=== PATIENT | female | born 1955 | race Caucasian/White ===

== ENCOUNTER → 2016-07-16 | Outpatient (CLI) | payer SELFPAY ==
[2016-07-16 15:20] LABS: Anion Gap 11 mmol/L; Blood Urea Nitrogen 12 mg/dL (7-17); Carbon Dioxide 28 mmol/L (22-30); Chloride 104 mmol/L (98-107); Creatine Kinase 77 U/L (30-135); Non-African American GFR(MDRD) >60 (>60 ml/min/1.73 sqM); Potassium 4.4 mmol/L (3.5-5.1); Sodium 143 mmol/L (137-145)
== END | disposition home or self-care (01) ==
LOC: MMGSC 09:55
PROVIDERS: ATTEND Internal Medicine Cardiovascular Disease
DX: E78.00 Pure hypercholesterolemia, unspecified (principal)
CPT/HCPCS: 36415; 80051; 82550; 82565; 84520

== ENCOUNTER → 2017-01-27 | Outpatient (CLI) | payer BC ==
[2017-01-27 21:05] LABS: ALT 33 U/L (9-52); AST 21 U/L (14-36); Cholesterol 161 mg/dL (<200); Creatine Kinase 95 U/L (30-135); HDL Cholesterol 66 mg/dL (40-60); Triglycerides 65 mg/dL (<150)
== END | disposition home or self-care (01) ==
LOC: MMGSC 10:23
PROVIDERS: ATTEND Internal Medicine Cardiovascular Disease
DX: I25.10 Atherosclerotic heart disease of native coronary artery without angina pectoris (principal); E78.5 Hyperlipidemia, unspecified
CPT/HCPCS: 36415; 80061; 82550; 84450; 84460

== ENCOUNTER → 2018-04-19 | Outpatient (CLI) | payer BC ==
--- NOTE | 2018-04-20 13:03 | MM ---
Reason for exam: screening (asymptomatic). Last mammogram was performed 3 years and 1 month ago. History: Patient is postmenopausal. Benign excisional biopsy of the left breast, 2016. Physical Findings: A clinical breast exam by your physician is recommended on an annual basis and results should be correlated with mammographic findings. MG 3D Screening Mammo W/Cad Bilateral CC and MLO view(s) were taken. Prior study comparison: April 01, 2015, mammogram, performed at [facility]. September 22, 2013, mammogram, performed at [facility]. The breast tissue is heterogeneously dense. This may lower the sensitivity of mammography. Stable benign calcifications. Left skin marker upper outer quadrant. ASSESSMENT: Negative, BI-RAD 1 RECOMMENDATION: Routine screening mammogram of both breasts in 1 year.
== END | disposition home or self-care (01) ==
LOC: RADMAMWWP 08:30
PROVIDERS: ATTEND Family Medicine
DX: Z12.31 Encounter for screening mammogram for malignant neoplasm of breast (principal)
CPT/HCPCS: 77063; 77067

== ENCOUNTER → 2019-09-18 | Outpatient (CLI) | payer MEDICARE | END | disposition home or self-care (01) | LOC: RADMAMWWP 11:15 | PROVIDERS: ATTEND Family Medicine | DX: Z12.31 Encounter for screening mammogram for malignant neoplasm of breast (principal) | CPT/HCPCS: 77063; 77067 ==

== ENCOUNTER → 2019-09-20 | Outpatient (CLI) | payer MEDICARE ==
--- NOTE | 2019-09-20 08:39 | MM ---
Reason for exam: additional evaluation requested from abnormal screening. Last mammogram was performed less than 1 month ago. History: Patient is postmenopausal. Benign excisional biopsy of the left breast, 2016. Physical Findings: Nurse did not find any significant physical abnormalities on exam. MG 3D Work Up W/Cad RT Spot compression CC and ML view(s) were taken of the right breast. Prior study comparison: September 18, 2019, bilateral MG 3d screening mammo w/cad. April 19, 2018, bilateral MG 3d screening mammo w/cad. The breast tissue is heterogeneously dense. This may lower the sensitivity of mammography. The previously seen abnormality resolves on additional views and appears as fibroglandular tissue compatible with summation. These results were verbally communicated with the patient and result sheet given to the patient on 09/20/19. ASSESSMENT: Negative, BI-RAD 1 RECOMMENDATION: Return to routine screening mammogram schedule for both breasts.
== END | disposition home or self-care (01) ==
LOC: RADMAMWWP 07:36
PROVIDERS: ATTEND Family Medicine
DX: R92.8 Other abnormal and inconclusive findings on diagnostic imaging of breast (principal)
CPT/HCPCS: 77065; G0279; 77061

== ENCOUNTER → 2020-05-28 | Outpatient (CLI) | payer MEDICARE | END | disposition home or self-care (01) | LOC: LABWHC1 16:09 | PROVIDERS: ATTEND Family Medicine | DX: R05 Cough (principal) | CPT/HCPCS: U0003; C9803 ==

== ENCOUNTER → 2020-12-31 | Outpatient (CLI) | payer MEDICARE ==
--- NOTE | 2021-01-03 13:40 | MM ---
Reason for exam: screening (asymptomatic). Last mammogram was performed 1 year and 3 months ago. History: Patient is postmenopausal. Benign excisional biopsy of the left breast, 2016. Physical Findings: A clinical breast exam by your physician is recommended on an annual basis and results should be correlated with mammographic findings. MG 3D Screening Mammo W/Cad Bilateral CC and MLO view(s) were taken. Prior study comparison: September 20, 2019, right breast MG 3d work up w/cad RT. September 18, 2019, bilateral MG 3d screening mammo w/cad. The breast tissue is heterogeneously dense. This may lower the sensitivity of mammography. No significant changes when compared with prior studies. ASSESSMENT: Benign, BI-RAD 2 RECOMMENDATION: Routine screening mammogram of both breasts in 1 year.
== END | disposition home or self-care (01) ==
LOC: RADMAMWWP 11:00
PROVIDERS: ATTEND Family Medicine
DX: Z12.31 Encounter for screening mammogram for malignant neoplasm of breast (principal)
CPT/HCPCS: 77063; 77067

== ENCOUNTER → 2021-01-13 | Outpatient (CLI) | payer MEDICARE ==
--- NOTE | 2021-01-14 03:30 | MR ---
EXAMINATION TYPE: MR brain and iac wo/w con DATE OF EXAM: 01/13/2021 COMPARISON: HISTORY: Left side hearing loss, dizziness CONTRAST: Standard multiplanar, multisequence MRI departmental protocol utilizing 9 mL intravenous Gadavist gabriela olinium contrast. There is mild cerebral atrophy. There is no mass effect nor midline shift. There is no sign of intrac ranial hemorrhage. Diffusion images show no sign of an acute infarct. Corpus callosum is intact. Brainstem appears intact. There is very minimal increased signal on the FL AIR images in the periventricular white matter. There is increased fluid signal in the left maxillary sinus. Images through the posterior fossa show normal appearing internal auditory canals. The acoustic and v estibular nerves appear normal. There is no cerebellopontine angle mass. There is normal signal patte rn in the mastoid sinuses. There is no sign of mastoiditis. The contrast images show no pathologic en hancement. There is normal enhancement of the venous sinuses. Sella turcica appears normal. There is no evidence of orbital mass. IMPRESSION: Mild atrophy. No evidence of posterior fossa abnormality. Left side maxillary sinusitis noted.
== END | disposition home or self-care (01) ==
LOC: RADMRIMAIN 09:37
PROVIDERS: ATTEND Otolaryngology
DX: H93.3X9 Disorders of unspecified acoustic nerve (principal); H91.90 Unspecified hearing loss, unspecified ear; G31.9 Degenerative disease of nervous system, unspecified
CPT/HCPCS: 70553; A9585

== ENCOUNTER → 2021-02-17 | Outpatient (CLI) | payer MEDICARE ==
--- NOTE | 2021-02-17 16:20 | US ---
EXAMINATION TYPE: US abdomen comp/pelvis limited DATE OF EXAM: 02/17/2021 COMPARISON: NONE CLINICAL HISTORY: 65-year-old female K76.89 Liver cyst, N28.1 renal cyst. TECHNIQUE: Multiple sonographic images of the abdomen and bladder are obtained. FINDINGS: EXAM MEASUREMENTS: Liver Length: 16.3 cm Gallbladder Wall: .13 cm CBD: .6 cm Spleen: 9.8 cm Right Kidney: 10.9 x 4.5 x 4.2 cm Left Kidney: 10.5 x 5.3 x 3.6 cm Pancreas: Only portions of the pancreatic head and neck are visualized. The pancreatic body and tail are suboptimally visualized due to shadowing from bowel gas. Liver: Mild increased echogenicity. A few benign cysts are present, largest measuring 2.5 cm. Gallbladder: No stones seen CBD: wnl Spleen: wnl Right Kidney: Cystic area lower pole 1.3 x 1.5 x 1.6cm. Possible focal cortical lobulation measuring 2.0 cm just adjacent in the lower pole. Follow-up recommended to exclude a small solid mass. No hydr onephrosis. Left Kidney: Dilated renal pelvis vs. parapelvic cyst measuring 3.0 x 1.4 x 2.1 cm. This can be r eassessed and short interval follow-up. No calyceal dilatation to suggest hydronephrosis. Upper IVC: wnl Abd Aorta: wnl Bladder: wnl Bilateral Jets Seen yes IMPRESSION: 1. Mild hepatic steatosis. A few benign-appearing hepatic cysts measure up to 2.5 cm. 2. Focal contour lobulation at the lower pole of the right kidney measuring 2.0 cm. Recommend 3-6 mon ths follow-up ultrasound to ensure stability and to exclude the possibility of a solid mass. 3. Pelviectasis versus parapelvic cyst left kidney measuring 3.0 cm. This can also be reassessed at t he patient's follow-up exam.
== END | disposition home or self-care (01) ==
LOC: RADUSWWP 14:04
PROVIDERS: ATTEND Family Medicine
DX: K76.0 Fatty (change of) liver, not elsewhere classified (principal); K76.89 Other specified diseases of liver; Q44.7 Other congenital malformations of liver; N28.1 Cyst of kidney, acquired
CPT/HCPCS: 76700; 76857

== ENCOUNTER → 2022-04-17 | Outpatient (CLI) | payer MEDICARE ==
--- NOTE | 2022-04-20 08:36 | MM ---
Reason for Exam: Screening (asymptomatic). Last mammogram was performed 1 year(s) and 4 month(s) ago. Patient History: Menarche at age 11. First Full-Term at age 20. Postmenopausal. 2016, Benign Excisional Biopsy on the left side. Risk Values: Marline 5 year model risk: 1.8%. NCI Lifetime model risk: 6.1%. Prior Study Comparison: 09/18/2019 Bilateral Screening Mammogram, [facility]. 09/20/2019 Right Diagnostic Mammogram, [facility]. 12/31/2020 Bilateral Screening Mammogram, [facility]. Tissue Density: The breast tissue is heterogeneously dense. This may lower the sensitivity of mammography. Findings: Analyzed By CAD. There is no suspicious group of microcalcifications or new suspicious mass in either breast. Stable round benign calcifications within both breasts. Stable chronic nodularity within the right breast. No significant change from prior exams. Overall Assessment: Benign, BI-RAD 2 Management: Screening Mammogram of both breasts in 1 year. A clinical breast exam by your physician is recommended on an annual basis and results should be correlated with mammographic findings. Electronically signed and approved by: Noah Moeller D.O.
== END | disposition home or self-care (01) ==
LOC: RADMAMWWP 08:33
PROVIDERS: ATTEND Family Medicine
DX: Z12.31 Encounter for screening mammogram for malignant neoplasm of breast (principal)
CPT/HCPCS: 77063; 77067

== ENCOUNTER 2022-06-04 01:32 | Emergency (ER) | payer MEDICARE ==
[2022-06-04] MEDS ORDERED: KETOROLAC 15 MG/ML 1 ML VIAL IM STA (04:06)
--- NOTE | 2022-06-04 04:49 | ED ---
General Adult HPI - General Chief complaint: ENT Stated complaint: Jaw Pain Time Seen by Provider: 06/04/22 02:40 Source: patient Mode of arrival: ambulatory - History of Present Illness Initial comments: Patient is a 66 year old female past medical history of coronary disease, asthma who presents to the emergency department with reported right jaw pain. States that the pain started this evening. Pain is reproducible upon movement of the jaw. No known dental caries or dental pain. She did not take any medications for her symptoms. She is deaf in her left ear. The discomfort is causing pain in the right ear and therefore the patient became concerned. She denies any fevers. No significant nasal congestion. No headaches or visual changes. She denies any chest pain. No shortness of breath. No facial swelling. No other alleviating, precipitating or modifying factors - Related Data Previous Rx's Medication Instructions Recorded Ketorolac [Toradol] 10 mg PO Q8HR #15 tab 06/04/22 Allergies Allergy/AdvReac Type Severity Reaction Status Date / Time No Known Allergies Allergy Verified 06/04/22 01:39 Review of Systems ROS Statement: Those systems with pertinent positive or pertinent negative responses have been documented in the HPI. ROS Other: All systems not noted in ROS Statement are negative. Past Medical History Past Medical History: Asthma, Coronary Artery Disease (CAD) History of Any Multi-Drug Resistant Organisms: None Reported Past Surgical History: Heart Catheterization With Stent Additional Past Surgical History / Comment(s): stents placed 1994 Past Psychological History: No Psychological Hx Reported Smoking Status: Never smoker Past Alcohol Use History: None Reported Past Drug Use History: None Reported General Exam General appearance: alert, in no apparent distress Head exam: Present: atraumatic, normocephalic, normal inspection Eye exam: Present: normal appearance, PERRL, EOMI. Absent: scleral icterus, conjunctival injection, periorbital swelling ENT exam: Present: normal exam, mucous membranes moist, other (tenderness to the right TMJ. no glandular swelling. no brawny edema of the neck) Neck exam: Present: normal inspection. Absent: tenderness, meningismus, lymphadenopathy Respiratory exam: Present: normal lung sounds bilaterally Cardiovascular Exam: Present: regular rate, normal rhythm, normal heart sounds. Absent: systolic murmur, diastolic murmur, rubs, gallop, clicks Course Vital Signs 06/04/22 06/04/22 01:35 05:00 Temperature 98.2 F 97.9 F Pulse Rate 77 70 Respiratory 18 16 Rate Blood Pressure 147/84 132/80 O2 Sat by Pulse 98 100 Oximetry EKG Findings - EKG Comments: EKG Findings:: EKG interpreted by myself. Demonstrates a sinus rhythm with a rate of 76. KS interval 157. QRS 81. QTC of 410. Inverted T-wave in lead 3 as well as V3. No reciprocal changes. Medical Decision Making - Medical Decision Making Upon arrival patient was placed into room 15. History and physical exam is performed. Clinical exam is consistent with TMJ syndrome. I did complete a 12- lead EKG as the patient does have a cardiac history. 12-lead EKG is interpreted by myself and is unremarkable. She was given 15 mg IM dose of Toradol. She does report improvement in her symptoms. Patient will be discharged home in on Toradol for the next 5 days. Take the medications as directed. Follow-up with your dentist for further management of your symptoms. Strict return parameters to return for any new or worsening symptoms, especially those cardiac in nature. Patient's symptoms not clinically consistent with cardiac etiology. She is place warm compresses to the site. Eat soft foods. Patient was agreeable to this plan and was discharged home in stable condition Disposition Clinical Impression: TMJ syndrome, Jaw pain Disposition: HOME SELF-CARE Condition: Stable Instructions (If sedation given, give patient instructions): Temporomandibular Disorder (ED) Additional Instructions: Take the pain medication as directed. Refrain from eating any chewy foods. Do not chew gum. Place warm compresses to the site. Follow-up with your dentist for further management and please return for any new or worsening symptoms Prescriptions: Ketorolac [Toradol] 10 mg PO Q8HR #15 tab Is patient prescribed a controlled substance at d/c from ED?: No Referrals: Lena Anderson MD [Primary Care Provider] - 1-2 days Time of Disposition: 04:49
[2022-06-04 05:01] VITALS: BP 132/80; PULSE 70; RESP 16; TEMP 97.9
== END 2022-06-04 05:00 | disposition home or self-care (01) ==
LOC: EC 01:32
DX: M26.601 Right temporomandibular joint disorder, unspecified (principal); J45.909 Unspecified asthma, uncomplicated; I25.10 Atherosclerotic heart disease of native coronary artery without angina pectoris
CPT/HCPCS: 93005; 99283; 96372; J1885

== ENCOUNTER → 2023-03-02 | Outpatient (CLI) | payer MEDICARE ==
[2023-03-02 11:31] LABS: Basophils # (A) 0.06 X 10*3/uL (0.00-0.10); Basophils % (A) 0.7 %; Eosinophils # (A) 0.14 X 10*3/uL (0.04-0.35); Eosinophils % (A) 1.7 %; HCT 43.8 % (37.2-46.3); HGB 14.2 d/dL (12.0-15.0); Lymphocytes # (A) 0.99 X 10*3/uL (0.90-5.00); Lymphocytes % (A) 12.2 %; MCH 28.9 pg (27.0-32.0); MCHC 32.4 d/dL (32.0-37.0); MCV 89.2 FL (80.0-97.0); Mean Platelet Volume 10.2 FL (9.5-12.2); Monocytes # (A) 0.55 X 10*3/uL (0.20-1.00); Monocytes % (A) 6.8 %; NRBC Per 100 WBC 0 X 10*3/uL (0.00-0.01); Neutrophils # (A) 6.32 X 10*3/uL (1.80-7.70); Platelet Count 304 X 10*3/uL (140-440); RBC 4.91 X 10*6/uL (4.10-5.20); RDW 13.2 % (11.5-14.5); WBC 8.11 X 10*3/uL (4.50-10.00)
[2023-03-02 11:56] LABS: ALT 17 U/L (8-44); AST 18 U/L (13-35); Albumin 4.5 d/dL (3.8-4.9); Albumin/Globulin Ratio 2.05 Ratio (1.60-3.17); Alkaline Phosphatase 82 U/L (41-126); BUN/Creat Ratio 15.09 Ratio (12.00-20.00); Blood Urea Nitrogen 16.6 mg/dL (9.0-27.0); Calcium 9.7 mg/dL (8.7-10.3); Carbon Dioxide 26.4 mmol/L (21.6-31.8); Chloride 107 mmol/L (96-109); Chol/HDL Ratio 2.76 Ratio; Globulin 2.2 d/dL (1.6-3.3); Glucose 98 mg/dL (70-110); LDL Cholesterol,Calculated 104.8 mg/dL (0.0-131.0); Potassium 4.8 mmol/L (3.5-5.5); Sodium 144 mmol/L (135-145); Total Bilirubin 0.7 mg/dL (0.3-1.2); Total Protein 6.7 d/dL (6.2-8.2)
== END | disposition home or self-care (01) ==
LOC: LABWHC1 08:22
PROVIDERS: ATTEND Nurse Practitioner Acute Care
DX: Z00.00 Encounter for general adult medical examination without abnormal findings (principal); E78.2 Mixed hyperlipidemia
CPT/HCPCS: 36415; 80053; 80061; 83036; 84443; 85025

== ENCOUNTER → 2023-04-21 | Outpatient (CLI) | payer MEDICARE ==
--- NOTE | 2023-04-22 11:20 | MM ---
Reason for Exam: Screening (asymptomatic). Last screening mammogram was performed 12 month(s) ago. Patient History: Menarche at age 11. First Full-Term at age 20. Postmenopausal. 2016, Benign Excisional Biopsy on the left side. Risk Values: Marline 5 year model risk: 1.8%. NCI Lifetime model risk: 5.9%. Prior Study Comparison: 09/20/2019 Right Diagnostic Mammogram, [facility]. 12/31/2020 Bilateral Screening Mammogram, [facility]. 04/17/2022 Bilateral MG 3D screening mammo w/cad, [facility]. Tissue Density: The breast tissue is heterogeneously dense. This may lower the sensitivity of mammography. Findings: Analyzed By CAD. There is no suspicious group of microcalcifications or new suspicious mass. Overall Assessment: Negative, BI-RAD 1 Management: Screening Mammogram of both breasts in [address] [facility] will attempt to contact patient to return for supplemental views and ultrasound if indicated. Patient should continue monthly self-breast exams. A clinical breast exam by your physician is recommended on an annual basis. This exam should not preclude additional follow-up of suspicious palpable abnormalities. Note on Marline scores and lifetime risk: 1. A Marline score greater than 3% is considered moderate risk. If this is the case, consider specialist referral to assess eligibility for a risk reducing agent. 2. If overall lifetime risk for the development of breast cancer is 20% or higher, the patient may qualify for future screening with alternating mammogram and breast MRI. Electronically signed and approved by: Andrew Lewis DO
== END | disposition home or self-care (01) ==
LOC: RADMAMWWP 08:39
PROVIDERS: ATTEND Family Medicine
DX: Z12.31 Encounter for screening mammogram for malignant neoplasm of breast (principal); Z78.0 Asymptomatic menopausal state
CPT/HCPCS: 77063; 77067

== ENCOUNTER → 2024-05-03 | Outpatient (CLI) | payer MEDICARE ==
--- NOTE | 2024-05-04 12:33 | MM ---
Reason for Exam: Screening (asymptomatic). Last screening mammogram was performed 12 month(s) ago. Patient History: Menarche at age 11. First Full-Term at age 20. Postmenopausal. 2016, Benign Excisional Biopsy on the left side. Risk Values: Marline 5 year model risk: 1.8%. NCI Lifetime model risk: 5.6%. Prior Study Comparison: 12/31/2020 Bilateral Screening Mammogram, [facility]. 04/17/2022 Bilateral MG 3D screening mammo w/cad, [facility]. 04/21/2023 Bilateral MG 3D screening mammo w/cad, [facility]. Tissue Density: The breasts are heterogeneously dense, which may obscure small masses. Findings: Analyzed By CAD. Unchanged bilateral areas of asymmetric density. Benign few scattered rounded punctate calcifications redemonstrated. There is no suspicious group of microcalcifications or new suspicious mass in either breast. Overall Assessment: Benign, BI-RAD 2 Management: Screening Mammogram of both breasts in 1 year. . Patient should continue monthly self-breast exams. A clinical breast exam by your physician is recommended on an annual basis. This exam should not preclude additional follow-up of suspicious palpable abnormalities. Note on Marline scores and lifetime risk: 1. A Marline score greater than 3% is considered moderate risk. If this is the case, consider specialist referral to assess eligibility for a risk reducing agent. 2. If overall lifetime risk for the development of breast cancer is 20% or higher, the patient may qualify for future screening with alternating mammogram and breast MRI. [facility], , 05/04/2024 12:30 PM. Electronically signed and approved by: Stacy Noel M.D. Radiologist
== END | disposition home or self-care (01) ==
LOC: RADMAMWWP 09:30
PROVIDERS: ATTEND Family Medicine
DX: Z12.31 Encounter for screening mammogram for malignant neoplasm of breast (principal); R92.333 Mammographic heterogeneous density, bilateral breasts; Z78.0 Asymptomatic menopausal state
CPT/HCPCS: 77063; 77067